=== PATIENT | female | born 1945 | race Caucasian/White ===

== ENCOUNTER 2019-09-25 12:13 | Outpatient (CLI) | payer MEDICARE, OTHER ==
--- NOTE | 2019-09-25 13:07 | RAD ---
2 views of the right hand: 09/25/2019 COMPARISON: None HISTORY: Right hand pain FINDINGS: There is degenerative change at the first carpometacarpal joint. Scattered degenerative angel nges are noted involving the distal and proximal interphalangeal joints as well as the interphalangeal joint of the thumb. No displaced fracture or dislocation. No radiopaque foreign body or subcutaneous gas. IMPRESSION: Multilevel degenerative change. No acute osseous abnormality.
--- NOTE | 2019-09-25 13:08 | RAD ---
Lumbar spine 3 views: 09/25/2019 COMPARISON: None HISTORY: Lumbar spondylosis FINDINGS: 5 lumbar type vertebral bodies present with intact pedicles on frontal imaging. Mild gaseou s distention of the stomach noted. Lateral imaging demonstrates normal lumbar vertebral body height and alignment. No acute fracture is evident. Multilevel lower lumbar spine facet hypertrophy. Atheros clerotic calcification of the abdominal aorta. IMPRESSION: Chronic findings as detailed above. No acute osseous abnormality.
--- NOTE | 2019-09-25 13:10 | RAD ---
Frontal and lateral imaging of the thoracic spine: 09/25/2019 COMPARISON: None HISTORY: Pain FINDINGS: Partially visualized right upper quadrant demonstrates gaseous distention of the stomach an d/or colon. No significant anterolisthesis or retrolisthesis is noted within the thoracic spine. No acute fractures noted. Multilevel upper and mid thoracic spine disc space narrowing noted. IMPRESSION: No acute osseous abnormality. Mild thoracic spine degenerative change. Gaseous distention of bowel within the left upper quadrant as detailed above.
== END 2019-09-25 12:14 | disposition home or self-care (01) ==
LOC: RAD 12:13
PROVIDERS: ATTEND Nurse Practitioner Family
DX: M47.816 Spondylosis without myelopathy or radiculopathy, lumbar region (principal); M79.641 Pain in right hand; M54.6 Pain in thoracic spine; M47.814 Spondylosis without myelopathy or radiculopathy, thoracic region; R14.0 Abdominal distension (gaseous); I70.0 Atherosclerosis of aorta; M53.86 Other specified dorsopathies, lumbar region; M19.041 Primary osteoarthritis, right hand
CPT/HCPCS: 72070; 72100

== ENCOUNTER 2021-03-15 06:53 | Day surgery (SDC) | payer MEDICARE, OTHER ==
[2021-03-13 14:07] VITALS: BMI 30.2
[2021-03-15] MEDS ORDERED: EPINEPHrine 1 MG/ML AMP ONE (07:54)
[2021-03-15] MEDS ORDERED: Bupivacaine PF 0.5% 30 ML VIAL ONE (07:54)
[2021-03-15] MEDS ORDERED: Thrombin 5000 UNITS/5 ML VIAL ONE (07:54)
[2021-03-15] MEDS ORDERED: Fentanyl 100 MCG/2 ML VIAL ONE (08:33)
[2021-03-15] MEDS ORDERED: Rocuronium Bromide 10 MG/ML (10ML VIAL) ONE (09:52)
[2021-03-15] MEDS ORDERED: Lidocaine 1% PF 5 ML VIAL ONE (09:52)
[2021-03-15] MEDS ORDERED: diphenhydrAMINE 50 MG/ML VIAL ONE (09:52)
[2021-03-15] MEDS ORDERED: Ketorolac Tromethamine 30 MG/ML VIAL ONE (09:52)
[2021-03-15] MEDS ORDERED: PROPOFOL 200 MG/20 ML VIAL ONE (09:52)
[2021-03-15] MEDS ORDERED: Metoprolol Tartrate 5 MG/5 ML VIAL ONE (09:52)
[2021-03-15] MEDS ORDERED: PHENYLEPHRINE-NS 100 MCG/ML 10 ML SYRINGE ONE (09:52)
[2021-03-15] MEDS ORDERED: Ondansetron PF 4 MG/2 ML Vial ONE (09:52)
[2021-03-15] MEDS ORDERED: Dexamethasone 20 MG/5 ML VIAL ONE (09:52)
[2021-03-15] MEDS ORDERED: Esmolol 100 MG/10 ML VIAL ONE (09:52)
[2021-03-15] MEDS ORDERED: SUGAMMADEX SODIUM 200 MG/2 ML VIAL ONE (10:14)
[2021-03-15] MEDS ORDERED: Morphine 2 MG/ML VIAL ONE (11:32)
[2021-03-15] MEDS ORDERED: Acetaminophen/Codeine 30-300mg Tablet ONE (14:04)
== END 2021-03-15 14:29 | disposition home or self-care (01) ==
LOC: SDC 06:53
PROVIDERS: ATTEND Neurological Surgery
PROC: 01NB0ZZ Release Lumbar Nerve, Open Approach (ICD-10-PCS; principal; 2021-03-15)
DX: M54.16 Radiculopathy, lumbar region (principal); K21.9 Gastro-esophageal reflux disease without esophagitis; K59.00 Constipation, unspecified; G43.909 Migraine, unspecified, not intractable, without status migrainosus; E78.5 Hyperlipidemia, unspecified; M81.0 Age-related osteoporosis without current pathological fracture; Z79.1 Long term (current) use of non-steroidal anti-inflammatories (NSAID); Z79.899 Other long term (current) drug therapy; Z91.041 Radiographic dye allergy status
CPT/HCPCS: 63030; 76000; J2270; J0171; J0690; J1100; J1200; J1885; J2405; J2704; J3010; S0020

== ENCOUNTER 2023-04-03 19:22 | Inpatient (IN) | payer MEDICARE, OTHER ==
[2023-04-03 21:25] VITALS: BMI 30.7
[2023-04-03] MEDS ORDERED: hydrALAZINE 20 MG/ML VIAL SLOW IVP PRN (22:09)
[2023-04-03] MEDS ORDERED: Ondansetron ODT 4 MG TAB PO PRN (22:09)
[2023-04-03] MEDS ORDERED: Ondansetron PF 4 MG/2 ML Vial IVP PRN (22:09)
[2023-04-03] MEDS ORDERED: Atorvastatin Calcium 40 MG TAB PO SCH (22:30)
[2023-04-03] MEDS ORDERED: busPIRone HCl 10 MG TAB PO SCH (22:30)
[2023-04-03] MEDS ORDERED: Aspirin 81 mg Enteric Coated Tablet PO SCH (22:30)
[2023-04-04 04:33] LABS: #Basophils 0.1 thou/uL (0.0-0.2); #Eosinphils 0.1 thou/uL (0.0-0.7); #Monocytes 1.1 thou/uL (0.11-0.59); #Neutrophils 6.8 thou/uL (1.40-6.50); %Basophils 0.5 % (0.0-1.0); %Eosinophils 0.5 % (0.0-10.0); %Lymphocytes 22.1 % (21.0-51.0); %Monocytes 10.4 % (0.0-10.0); %Neutrophils 66.2 % (42.0-75.0); Hematocrit 39.3 % (36.0-47.0); Hemoglobin 12.6 g/dL (12.0-16.0); Mean Corpuscular HGB CONC 32.1 g/dL (32.0-36.0); Mean Corpuscular Hemoglobin 30.1 pg (27.0-31.0); Mean Corpuscular Volume 93.8 fl (78.0-98.0); Mean Platelet Volume 10.3 fL (7.4-10.4); Platelet Count 250 10x3/uL (130-400); RBC Distribution Width 13.3 % (11.5-14.5); Red Blood Cell (RBC) Count 4.19 mill/uL (4.20-5.40); White Blood Cell (WBC) Count 10.3 10x3/uL (4.8-10.8)
[2023-04-04 05:00] LABS: Anion Gap 9 mmol/L (10-20); BUN (Urea Nitrogen) 9 mg/dL (9.8-20.1); Calc. Creatinine Clearance 85 mL/min (70-130); Calcium 9.3 mg/dL (7.8-10.44); Carbon Dioxide 23 mmol/L (23-31); Cardiac Risk 4.8 (Less than 4.5); Chloride 108 mmol/L (98-107); Cholesterol 198 mg/dl (< 200 Desired); Estimated GFR 87; Glucose 96 mg/dL (83-110); HDL Cholesterol 41 mg/dL (>60 Neg Risk); LDL Cholesterol, Calculated 136 mg/dL; Magnesium 2.2 mg/dL (1.6-2.6); Potassium 3.5 mmol/L (3.5-5.1); Sodium 136 mmol/L (136-145); Triglycerides 104 mg/dL (Less than 150)
[2023-04-04] MEDS: Acetaminophen 325 MG TAB PO PRN ×2 (10:38→20:32)
[2023-04-04] MEDS: Aspirin 81 mg Enteric Coated Tablet PO SCH (10:39)
[2023-04-04] MEDS: DULoxetine 60 MG CAP PO SCH (10:40)
[2023-04-04] MEDS: busPIRone HCl 10 MG TAB PO SCH ×2 (10:40→20:29)
[2023-04-04] MEDS: SUMAtriptan Succinate 50 MG TAB PO PRN (11:11)
[2023-04-04] MEDS ORDERED: Clopidogrel Bisulfate 300 MG TAB PO SCH (12:00)
[2023-04-04] MEDS ORDERED: Atorvastatin Calcium 40 MG TAB PO SCH (21:00)
[2023-04-05 05:12] LABS: #Basophils 0.1 thou/uL (0.0-0.2); #Eosinphils 0.1 thou/uL (0.0-0.7); #Monocytes 0.6 thou/uL (0.11-0.59); #Neutrophils 4.2 thou/uL (1.40-6.50); %Basophils 1.2 % (0.0-1.0); %Eosinophils 1.6 % (0.0-10.0); %Lymphocytes 26.2 % (21.0-51.0); %Monocytes 9.1 % (0.0-10.0); %Neutrophils 61.6 % (42.0-75.0); Hematocrit 41.9 % (36.0-47.0); Hemoglobin 13.3 g/dL (12.0-16.0); Mean Corpuscular HGB CONC 31.7 g/dL (32.0-36.0); Mean Corpuscular Hemoglobin 30.4 pg (27.0-31.0); Mean Corpuscular Volume 95.7 fl (78.0-98.0); Mean Platelet Volume 10.2 fL (7.4-10.4); Platelet Count 242 10x3/uL (130-400); RBC Distribution Width 13.3 % (11.5-14.5); Red Blood Cell (RBC) Count 4.38 mill/uL (4.20-5.40); White Blood Cell (WBC) Count 6.8 10x3/uL (4.8-10.8)
[2023-04-05 05:30] LABS: Anion Gap 10 mmol/L (10-20); BUN (Urea Nitrogen) 9 mg/dL (9.8-20.1); Calc. Creatinine Clearance 87 mL/min (70-130); Calcium 9.1 mg/dL (7.8-10.44); Carbon Dioxide 25 mmol/L (23-31); Chloride 109 mmol/L (98-107); Estimated GFR 88; Glucose 99 mg/dL (83-110); Potassium 3.8 mmol/L (3.5-5.1); Sodium 140 mmol/L (136-145)
[2023-04-05] MEDS: Aspirin 81 mg Enteric Coated Tablet PO SCH (08:58)
[2023-04-05] MEDS: busPIRone HCl 10 MG TAB PO SCH (08:59)
[2023-04-05] MEDS: DULoxetine 60 MG CAP PO SCH (09:00)
[2023-04-05] MEDS: Acetaminophen 325 MG TAB PO PRN ×2 (09:00→12:19)
[2023-04-05] MEDS ORDERED: Clopidogrel Bisulfate 75 MG TAB PO SCH (09:00)
[2023-04-05 11:31] VITALS: TEMP 97.7
[2023-04-05 12:54] VITALS: BP 139/79
[2023-04-05] MEDS: SUMAtriptan Succinate 50 MG TAB PO PRN (14:01)
== END 2023-04-05 19:14 | disposition home health service (06) | DRG 66 ==
LOC: 2SE 20:50
PROVIDERS: ADMIT Internal Medicine; ATTEND Internal Medicine
DX: I63.511 Cerebral infarction due to unspecified occlusion or stenosis of right middle cerebral artery (principal); F43.10 Post-traumatic stress disorder, unspecified; F32.A Depression, unspecified; G43.909 Migraine, unspecified, not intractable, without status migrainosus; E78.5 Hyperlipidemia, unspecified; Z90.710 Acquired absence of both cervix and uterus; Z98.890 Other specified postprocedural states; Z87.891 Personal history of nicotine dependence; Z88.6 Allergy status to analgesic agent; Z91.041 Radiographic dye allergy status; Z79.899 Other long term (current) drug therapy; Z79.82 Long term (current) use of aspirin
CPT/HCPCS: 36415; 70551; 80048; 80061; 83735; 84443; 85025; 93306